=== PATIENT | male | born 1995 | race Caucasian/White ===

== ENCOUNTER 2016-09-09 18:43 | Emergency (ER) | payer MEDICAID ==
[~2016-09-09] VITALS: Ht 177.8 cm; Wt 102.0 kg
[2016-09-10] MEDS ORDERED: KETOROLAC 60MG/2ML VIAL IM ONE
[2016-09-10 01:27] VITALS: BP 127/70
== END 2016-09-10 01:33 | disposition home or self-care (01) ==
LOC: ER 22:35
DX: M79.605 Pain in left leg (principal); R07.89 Other chest pain; X58.XXXA Exposure to other specified factors, initial encounter; Y93.89 Activity, other specified; Y92.89 Other specified places as the place of occurrence of the external cause; Y99.8 Other external cause status
CPT/HCPCS: 71010; 73552; 96372; 99284; J1885; Z7610